=== PATIENT | male | born 1955 | race Caucasian/White ===

== ENCOUNTER 2018-07-18 14:35 | Inpatient (IN) | payer OTHER ==
[~2018-07-18] VITALS: Ht 193 cm; Wt 121.6 kg
[2018-07-18 14:40] VITALS: BP 146/99
[2018-07-18] MEDS ORDERED: methylPREDNISolone SS 125 MG/2 ML VIAL IVP ONE (14:45)
[2018-07-18] MEDS ORDERED: ALBUTEROL SULFATE/IPRATROPIU 3 ML SOL IH ONE ×2 (14:45→16:10)
[2018-07-18 15:34] LABS: BASOPHILS % (AUTO) 0.4 % (0.0-2.0); EOSINOPHILS # (AUTO) 0.6 K/uL (0-0.4); EOSINOPHILS % (AUTO) 6.6 % (0.0-4.0); HEMATOCRIT 41.2 % (36-52); HEMOGLOBIN 13.4 g/dL (12.0-18.0); LYMPHOCYTES # (AUTO) 0.9 K/uL (2.0-11.5); LYMPHOCYTES % (AUTO) 9.8 % (20.5-51.1); MEAN CORPUSCULAR HEMOGLOBIN 31 pg (27-31); MEAN CORPUSCULAR HGB CONC 32 g/dL (33-37); MEAN CORPUSCULAR VOLUME 94.8 fL (80-94); MONOCYTES # (AUTO) 0.5 K/uL (0.8-1.0); MONOCYTES % (AUTO) 5.9 % (1.7-9.3); NEUTROPHILS # (AUTO) 7.2 K/uL (1.8-7.7); NEUTROPHILS % (AUTO) 77.3 % (42.2-75.2); PLATELET COUNT (AUTO) 209 K/uL (140-450); RED BLOOD CELL COUNT(AUTO) 4.35 MIL/uL (4.20-6.10); RED CELL DISTRIBUTION WIDTH 17.3 % (11.6-13.7); WHITE BLOOD COUNT (AUTO) 9.3 K/uL (4.8-10.8)
[2018-07-18] MEDS ORDERED: NACL 0.9% 1,000 ML IV ONE ×2 (16:10→17:25)
[2018-07-18] MEDS ORDERED: ACETAMINOPHEN 325 MG TAB PO ONE (16:15)
[2018-07-18 16:53] LABS: POTASSIUM 3.8 mmol/L (3.5-5.1)
[2018-07-18 16:54] LABS: ANION GAP 15.6 (8-16); CARBON DIOXIDE 24.2 mmol/L (21-32)
[2018-07-18 16:55] LABS: CREATININE 1.2 mg/dL (0.7-1.3)
[2018-07-18 16:59] LABS: ALBUMIN 4.2 g/dL (3.4-5.0); TOTAL BILIRUBIN 0.6 mg/dL (0.0-1.0)
[2018-07-18] MEDS ORDERED: DOXYCYCLINE 100 MG in DEXTROSE 5% 100 ML IV STA (17:21)
[2018-07-18] MEDS ORDERED: ONDANSETRON 4 MG/2 ML VIAL IVP PRN (17:35)
[2018-07-18] MEDS ORDERED: ZOLPIDEM 5 MG TAB PO PRN (17:35)
[2018-07-18] MEDS ORDERED: HYDROcodone/APAP 7.5/325 MG 1 TAB PO PRN (17:35)
[2018-07-18] MEDS ORDERED: ALBUTEROL SULFATE/IPRATROPIU 3 ML SOL IH PRN (17:45)
[2018-07-18 18:25] VITALS: BP 123/74
[2018-07-18 18:37] LABS: PROTHROMBIN TIME 10.5 secs (10.8-13.4)
[2018-07-18 18:44] LABS: MAGNESIUM 1.8 mg/dL (1.8-2.4); PHOSPHORUS 3.2 mg/dL (2.5-4.9)
[2018-07-18 18:45] LABS: FREE T4 (FREE THYROXINE) 0.76 ng/dL (0.76-1.46); THYROID STIMULATING HORMONE 3.01 uIU/mL (0.34-3.74)
[2018-07-18] MEDS: NACL 0.9% 1,000 ML IV SCH (18:46)
[2018-07-18] MEDS: ALBUTEROL SULFATE/IPRATROPIU 3 ML SOL IH SCH (19:42)
[2018-07-18 20:00] VITALS: BP 124/71
[2018-07-18] MEDS: DOCUSATE SODIUM 100 MG GELCAP PO SCH (21:05)
[2018-07-18] MEDS ORDERED: METOPROLOL SUCCINATE 50 MG TABER PO SCH (22:55)
[2018-07-18] MEDS ORDERED: PNEUMOCOCCAL VACCINE 23 MCG/0.5 ML VIAL IMVAC PRN (23:10)
[2018-07-18] MEDS ORDERED: INFLUENZA VIRUS VACCINE QUAD 0.5 ML SYR IMVAC PRN (23:10)
[2018-07-18 23:58] LABS: BARBITURATE, URINE NEGATIVE ng/ml (NEG <=200); BENZODIAZEPINE, URINE NEGATIVE ng/mL (NEG <=200); CANNABINOID, URINE NEGATIVE ng/mL (NEG <=50); COCAINE, URINE NEGATIVE ng/mL (NEG <=300); OPIATE, URINE NEGATIVE ng/mL (NEG <=2000); PHENCYCLIDINE SCREEN,URINE NEGATIVE ng/mL (NEG <=25)
[2018-07-19] VITALS: BP 115/86
[2018-07-19 01:03] LABS: APPEARANCE,URINE CLEAR (CLEAR); BILIRUBIN,URINE NEGATIVE (NEGATIVE); BLOOD, URINE NEGATIVE (NEGATIVE); COLOR,URINE YELLOW (YELLOW); LEUKOCYTE ESTERASE ,URINE NEGATIVE (NEGATIVE); NITRITE, URINE NEGATIVE (NEGATIVE); UGLUCOSE NEGATIVE (NEGATIVE)
[2018-07-19 04:00] VITALS: BP 119/61
[2018-07-19] MEDS ORDERED: DOXYCYCLINE 100 MG in DEXTROSE 5% 100 ML IV ONE (05:00)
[2018-07-19] MEDS: methylPREDNISolone SS 125 MG/2 ML VIAL IVP SCH ×3 (05:20→21:16)
[2018-07-19] MEDS: DOXYCYCLINE 100 MG VIAL IV ONE ×2 (05:21→05:22)
[2018-07-19 07:09] LABS: BASOPHILS % (AUTO) 0.1 % (0.0-2.0); EOSINOPHILS % (AUTO) 0.1 % (0.0-4.0); HEMOGLOBIN 13.5 g/dL (12.0-18.0); LYMPHOCYTES # (AUTO) 0.5 K/uL (2.0-11.5); LYMPHOCYTES % (AUTO) 6.2 % (20.5-51.1); MEAN CORPUSCULAR HEMOGLOBIN 31 pg (27-31); MEAN CORPUSCULAR HGB CONC 33 g/dL (33-37); MEAN CORPUSCULAR VOLUME 95.3 fL (80-94); MONOCYTES # (AUTO) 0.3 K/uL (0.8-1.0); MONOCYTES % (AUTO) 3.4 % (1.7-9.3); NEUTROPHILS # (AUTO) 7.7 K/uL (1.8-7.7); NEUTROPHILS % (AUTO) 90.2 % (42.2-75.2); PLATELET COUNT (AUTO) 214 K/uL (140-450); RED BLOOD CELL COUNT(AUTO) 4.31 MIL/uL (4.20-6.10); RED CELL DISTRIBUTION WIDTH 17.9 % (11.6-13.7); WHITE BLOOD COUNT (AUTO) 8.5 K/uL (4.8-10.8)
[2018-07-19] MEDS: ALBUTEROL SULFATE/IPRATROPIU 3 ML SOL IH SCH ×4 (07:37→23:27)
[2018-07-19 07:53] LABS: PHOSPHORUS 3.7 mg/dL (2.5-4.9)
[2018-07-19 08:00] VITALS: BP 138/76
[2018-07-19] MEDS: DOCUSATE SODIUM 100 MG GELCAP PO SCH ×2 (09:00→21:15)
[2018-07-19 10:42] LABS: POTASSIUM 4.3 mmol/L (3.5-5.1)
[2018-07-19 10:43] LABS: CARBON DIOXIDE 24.3 mmol/L (21-32); CREATININE 1.2 mg/dL (0.7-1.3)
[2018-07-19 12:00] VITALS: BP 124/78
[2018-07-19] MEDS: AZITHROMYCIN 250 MG in DEXTROSE 5% 250 ML IV SCH (14:15)
[2018-07-19 16:00] VITALS: BP 119/75
[2018-07-19] MEDS: NACL 0.9% 1,000 ML IV SCH (17:02)
[2018-07-19] MEDS: BUDESONIDE 0.5 MG/2 ML NEBU INH SCH (19:44)
[2018-07-19 20:00] VITALS: BP 134/64
[2018-07-19] MEDS ORDERED: DILTIAZEM 25 MG/5 ML VIAL IVP SCH (20:30)
[2018-07-19] MEDS: ACETAMINOPHEN 325 MG TAB PO PRN (21:26)
[2018-07-20] VITALS (20 sets, daily range): BP systolic 101–137; BP diastolic 44–109
[2018-07-20] MEDS: ALBUTEROL SULFATE/IPRATROPIU 3 ML SOL IH SCH ×6 (03:39→23:24)
[2018-07-20] MEDS ORDERED: DILTIAZEM 25 MG/5 ML VIAL IVP SCH ×2 (04:00→15:45)
[2018-07-20] MEDS: methylPREDNISolone SS 40 MG/ML VIAL IVP SCH ×2 (05:35→14:20)
[2018-07-20] MEDS: ACETAMINOPHEN 325 MG TAB PO PRN ×2 (05:42→12:17)
[2018-07-20] MEDS: BUDESONIDE 0.5 MG/2 ML NEBU INH SCH ×2 (07:27→19:02)
[2018-07-20 07:41] LABS: HEMATOCRIT 39.6 % (36-52); HEMOGLOBIN 12.7 g/dL (12.0-18.0); LYMPHOCYTES # (AUTO) 0.4 K/uL (2.0-11.5); LYMPHOCYTES % (AUTO) 2.7 % (20.5-51.1); MEAN CORPUSCULAR HEMOGLOBIN 31 pg (27-31); MEAN CORPUSCULAR HGB CONC 32 g/dL (33-37); MEAN CORPUSCULAR VOLUME 95.8 fL (80-94); MONOCYTES # (AUTO) 0.8 K/uL (0.8-1.0); NEUTROPHILS # (AUTO) 14.4 K/uL (1.8-7.7); NEUTROPHILS % (AUTO) 92.3 % (42.2-75.2); PLATELET COUNT (AUTO) 218 K/uL (140-450); RED BLOOD CELL COUNT(AUTO) 4.13 MIL/uL (4.20-6.10); RED CELL DISTRIBUTION WIDTH 18.3 % (11.6-13.7); WHITE BLOOD COUNT (AUTO) 15.6 K/uL (4.8-10.8)
[2018-07-20 08:25] LABS: ANION GAP 12.2 (8-16); CARBON DIOXIDE 28.8 mmol/L (21-32); CREATININE 1.2 mg/dL (0.7-1.3)
[2018-07-20 08:35] LABS: MAGNESIUM 2.1 mg/dL (1.8-2.4); PHOSPHORUS 3.1 mg/dL (2.5-4.9)
[2018-07-20] MEDS: DOCUSATE SODIUM 100 MG GELCAP PO SCH ×2 (09:00→20:26)
[2018-07-20] MEDS: ECOTRIN 81 MG TABEC PO SCH (10:09)
[2018-07-20] MEDS: PANTOPRAZOLE 40 MG TABEC PO SCH (10:09)
[2018-07-20] MEDS: ATORVASTATIN 20 MG TAB PO SCH (10:09)
[2018-07-20] MEDS: MONTELUKAST SODIUM 10 MG TAB PO SCH (10:09)
[2018-07-20] MEDS: amLODIPine 5 MG TAB PO SCH (10:10)
[2018-07-20] MEDS: AZITHROMYCIN 250 MG in DEXTROSE 5% 250 ML IV SCH ×2 (13:57→15:35)
[2018-07-20] MEDS ORDERED: NACL 0.9% 500 ML IV SCH (15:40)
[2018-07-20] MEDS: NACL 0.9% 1,000 ML IV SCH ×2 (17:33→20:40)
[2018-07-20] MEDS ORDERED: DIGOXIN 0.25 MG/ML AMP IV ONE (18:05)
[2018-07-20] MEDS ORDERED: AMIODARONE 450 MG/9 ML VIAL IV ONE (20:11)
[2018-07-20] MEDS ORDERED: AMIODARONE 150 MG/3 ML VIAL IV ONE (20:22)
[2018-07-20] MEDS: AMIODARONE 450 MG in DEXTROSE 5% 250 ML IV SCH (20:41)
[2018-07-21] VITALS (54 sets, daily range): BP systolic 99–160; BP diastolic 49–116
[2018-07-21] MEDS: ALBUTEROL SULFATE/IPRATROPIU 3 ML SOL IH SCH ×6 (03:10→23:17)
[2018-07-21] MEDS: methylPREDNISolone SS 40 MG/ML VIAL IVP SCH ×2 (04:20→08:31)
[2018-07-21] MEDS ORDERED: methylPREDNISolone SS 40 MG/ML VIAL ONE (04:30)
[2018-07-21] MEDS: ACETAMINOPHEN 325 MG TAB PO PRN ×4 (05:37→21:18)
[2018-07-21] MEDS: AMIODARONE 450 MG in DEXTROSE 5% 250 ML IV SCH ×2 (05:43→23:36)
[2018-07-21] MEDS ORDERED: AMIODARONE 150 MG/3 ML VIAL IV ONE (05:46)
[2018-07-21] MEDS: BUDESONIDE 0.5 MG/2 ML NEBU INH SCH ×2 (06:39→18:32)
[2018-07-21 06:41] LABS: HEMATOCRIT 38.1 % (36-52); HEMOGLOBIN 12.3 g/dL (12.0-18.0); LYMPHOCYTES # (AUTO) 0.7 K/uL (2.0-11.5); LYMPHOCYTES % (AUTO) 4.8 % (20.5-51.1); MEAN CORPUSCULAR HEMOGLOBIN 31 pg (27-31); MEAN CORPUSCULAR HGB CONC 32 g/dL (33-37); MEAN CORPUSCULAR VOLUME 96.1 fL (80-94); MONOCYTES # (AUTO) 0.8 K/uL (0.8-1.0); MONOCYTES % (AUTO) 5.7 % (1.7-9.3); NEUTROPHILS # (AUTO) 12.3 K/uL (1.8-7.7); NEUTROPHILS % (AUTO) 89.5 % (42.2-75.2); PLATELET COUNT (AUTO) 222 K/uL (140-450); RED BLOOD CELL COUNT(AUTO) 3.97 MIL/uL (4.20-6.10); RED CELL DISTRIBUTION WIDTH 18.4 % (11.6-13.7); WHITE BLOOD COUNT (AUTO) 13.8 K/uL (4.8-10.8)
[2018-07-21 07:17] LABS: ANION GAP 10.3 (8-16); CARBON DIOXIDE 29.3 mmol/L (21-32); CREATININE 1.1 mg/dL (0.7-1.3); POTASSIUM 3.6 mmol/L (3.5-5.1)
[2018-07-21 07:29] LABS: MAGNESIUM 2.1 mg/dL (1.8-2.4); PHOSPHORUS 4.1 mg/dL (2.5-4.9)
[2018-07-21] MEDS: PANTOPRAZOLE 40 MG TABEC PO SCH (08:30)
[2018-07-21] MEDS: ATORVASTATIN 20 MG TAB PO SCH (08:30)
[2018-07-21] MEDS: ECOTRIN 81 MG TABEC PO SCH (08:31)
[2018-07-21] MEDS: amLODIPine 5 MG TAB PO SCH (08:32)
[2018-07-21] MEDS: MONTELUKAST SODIUM 10 MG TAB PO SCH (08:32)
[2018-07-21] MEDS: DOCUSATE SODIUM 100 MG GELCAP PO SCH ×2 (08:33→20:07)
[2018-07-21] MEDS ORDERED: methylPREDNISolone SS 40 MG/ML VIAL IVP SCH (09:00)
[2018-07-21] MEDS: AZITHROMYCIN 250 MG in DEXTROSE 5% 250 ML IV SCH (13:25)
[2018-07-21] MEDS ORDERED: BENZONATATE 100 MG CAPLF PO PRN (15:20)
[2018-07-21] MEDS ORDERED: DIGOXIN 0.25 MG/ML AMP IV SCH (19:00)
[2018-07-21] MEDS: ASPIRIN 81 MG TAB.CHEW PO SCH (20:06)
[2018-07-22] VITALS (62 sets, daily range): BP systolic 97–160; BP diastolic 59–103
[2018-07-22] MEDS ORDERED: DIGOXIN 0.25 MG/ML AMP IV SCH
[2018-07-22] MEDS: ALBUTEROL SULFATE/IPRATROPIU 3 ML SOL IH SCH ×6 (03:19→23:00)
[2018-07-22 06:22] LABS: BASOPHILS % (AUTO) 0.1 % (0.0-2.0); EOSINOPHILS % (AUTO) 0.2 % (0.0-4.0); HEMATOCRIT 38.4 % (36-52); HEMOGLOBIN 12.6 g/dL (12.0-18.0); LYMPHOCYTES # (AUTO) 1.1 K/uL (2.0-11.5); LYMPHOCYTES % (AUTO) 11.3 % (20.5-51.1); MEAN CORPUSCULAR HEMOGLOBIN 31 pg (27-31); MEAN CORPUSCULAR HGB CONC 33 g/dL (33-37); MONOCYTES # (AUTO) 0.9 K/uL (0.8-1.0); MONOCYTES % (AUTO) 9.1 % (1.7-9.3); NEUTROPHILS % (AUTO) 79.3 % (42.2-75.2); PLATELET COUNT (AUTO) 215 K/uL (140-450); RED BLOOD CELL COUNT(AUTO) 3.99 MIL/uL (4.20-6.10); RED CELL DISTRIBUTION WIDTH 18.3 % (11.6-13.7); WHITE BLOOD COUNT (AUTO) 10.1 K/uL (4.8-10.8)
[2018-07-22] MEDS: BUDESONIDE 0.5 MG/2 ML NEBU INH SCH ×2 (07:02→18:51)
[2018-07-22 07:31] LABS: ANION GAP 11.1 (8-16); CREATININE 1.2 mg/dL (0.7-1.3); POTASSIUM 4.1 mmol/L (3.5-5.1)
[2018-07-22 07:46] LABS: PHOSPHORUS 3.3 mg/dL (2.5-4.9)
[2018-07-22] MEDS: ACETAMINOPHEN 325 MG TAB PO PRN ×2 (08:43→22:07)
[2018-07-22] MEDS: ECOTRIN 81 MG TABEC PO SCH (08:43)
[2018-07-22] MEDS: methylPREDNISolone SS 40 MG/ML VIAL IVP SCH (08:43)
[2018-07-22] MEDS: amLODIPine 5 MG TAB PO SCH (08:43)
[2018-07-22] MEDS: PANTOPRAZOLE 40 MG TABEC PO SCH (08:43)
[2018-07-22] MEDS: ATORVASTATIN 20 MG TAB PO SCH (08:44)
[2018-07-22] MEDS: MONTELUKAST SODIUM 10 MG TAB PO SCH (08:49)
[2018-07-22] MEDS: DOCUSATE SODIUM 100 MG GELCAP PO SCH ×2 (08:59→21:00)
[2018-07-22] MEDS ORDERED: guaiFENesin 600 MG TABER PO SCH (09:09)
[2018-07-22] MEDS: FLUTICASONE NASAL 50 MCG/ACTUATION 16 GM BTL NS SCH (09:52)
[2018-07-22] MEDS: AZITHROMYCIN 250 MG in DEXTROSE 5% 250 ML IV SCH (12:01)
[2018-07-22] MEDS: NACL 0.9% 1,000 ML IV SCH (12:01)
[2018-07-22] MEDS: AMIODARONE 450 MG in DEXTROSE 5% 250 ML IV SCH (13:39)
[2018-07-22] MEDS ORDERED: DIGOXIN 0.25 MG TAB PO SCH (16:30)
[2018-07-22] MEDS: ACETYLCYSTEINE 10% (100 MG/ML) 100 MG/ML VIAL INH SCH ×2 (19:00→23:00)
[2018-07-22] MEDS: guaiFENesin 600 MG TABER PO SCH (21:00)
[2018-07-22] MEDS: ASPIRIN 81 MG TAB.CHEW PO SCH (21:00)
[2018-07-23] VITALS (17 sets, daily range): BP systolic 107–157; BP diastolic 60–109
[2018-07-23] MEDS: ACETYLCYSTEINE 10% (100 MG/ML) 100 MG/ML VIAL INH SCH ×6 (03:00→23:45)
[2018-07-23] MEDS: ALBUTEROL SULFATE/IPRATROPIU 3 ML SOL IH SCH ×6 (03:00→23:45)
[2018-07-23 05:15] LABS: BASOPHILS % (AUTO) 0.2 % (0.0-2.0); EOSINOPHILS # (AUTO) 0.1 K/uL (0-0.4); EOSINOPHILS % (AUTO) 1.3 % (0.0-4.0); HEMATOCRIT 39.5 % (36-52); LYMPHOCYTES # (AUTO) 1.3 K/uL (2.0-11.5); LYMPHOCYTES % (AUTO) 15.5 % (20.5-51.1); MEAN CORPUSCULAR HEMOGLOBIN 31 pg (27-31); MEAN CORPUSCULAR HGB CONC 33 g/dL (33-37); MEAN CORPUSCULAR VOLUME 94.9 fL (80-94); MONOCYTES # (AUTO) 0.7 K/uL (0.8-1.0); MONOCYTES % (AUTO) 8.6 % (1.7-9.3); NEUTROPHILS # (AUTO) 6.2 K/uL (1.8-7.7); NEUTROPHILS % (AUTO) 74.4 % (42.2-75.2); PLATELET COUNT (AUTO) 211 K/uL (140-450); RED BLOOD CELL COUNT(AUTO) 4.16 MIL/uL (4.20-6.10); RED CELL DISTRIBUTION WIDTH 17.8 % (11.6-13.7); WHITE BLOOD COUNT (AUTO) 8.4 K/uL (4.8-10.8)
[2018-07-23] MEDS: AMIODARONE 200 MG TAB PO SCH ×3 (06:00→20:43)
[2018-07-23 06:20] LABS: ANION GAP 11.9 (8-16); CREATININE 1.1 mg/dL (0.7-1.3); POTASSIUM 3.9 mmol/L (3.5-5.1)
[2018-07-23 06:24] LABS: PHOSPHORUS 4.1 mg/dL (2.5-4.9)
[2018-07-23] MEDS: BUDESONIDE 0.5 MG/2 ML NEBU INH SCH ×2 (06:50→19:26)
[2018-07-23] MEDS: guaiFENesin 600 MG TABER PO SCH ×2 (08:14→20:44)
[2018-07-23] MEDS: DOCUSATE SODIUM 100 MG GELCAP PO SCH ×2 (08:14→20:43)
[2018-07-23] MEDS: ATORVASTATIN 20 MG TAB PO SCH (08:14)
[2018-07-23] MEDS: DIGOXIN 0.25 MG TAB PO SCH (08:14)
[2018-07-23] MEDS: ECOTRIN 81 MG TABEC PO SCH (08:14)
[2018-07-23] MEDS: PANTOPRAZOLE 40 MG TABEC PO SCH (08:15)
[2018-07-23] MEDS: MONTELUKAST SODIUM 10 MG TAB PO SCH (08:15)
[2018-07-23] MEDS: amLODIPine 5 MG TAB PO SCH (08:15)
[2018-07-23] MEDS: FLUTICASONE NASAL 50 MCG/ACTUATION 16 GM BTL NS SCH (08:23)
[2018-07-23] MEDS: methylPREDNISolone SS 40 MG/ML VIAL IVP SCH (08:23)
[2018-07-23] MEDS: AZITHROMYCIN 250 MG in DEXTROSE 5% 250 ML IV SCH (12:52)
[2018-07-23] MEDS ORDERED: AZITHROMYCIN 250 MG in DEXTROSE 5% 250 ML IV SCH (13:00)
[2018-07-23] MEDS: AMIODARONE 450 MG in DEXTROSE 5% 250 ML IV SCH (14:35)
[2018-07-23] MEDS: NACL 0.9% 1,000 ML IV SCH (16:40)
[2018-07-23] MEDS: ASPIRIN 81 MG TAB.CHEW PO SCH (20:43)
[2018-07-24] VITALS (8 sets, daily range): BP systolic 94–147; BP diastolic 58–93
[2018-07-24] MEDS: ACETYLCYSTEINE 10% (100 MG/ML) 100 MG/ML VIAL INH SCH ×6 (03:00→23:00)
[2018-07-24] MEDS: ALBUTEROL SULFATE/IPRATROPIU 3 ML SOL IH SCH ×6 (03:00→23:22)
[2018-07-24 05:45] LABS: HEMATOCRIT 41.8 % (36-52); HEMOGLOBIN 13.8 g/dL (12.0-18.0); MEAN CORPUSCULAR HEMOGLOBIN 32 pg (27-31); MEAN CORPUSCULAR HGB CONC 33 g/dL (33-37); MEAN CORPUSCULAR VOLUME 95.4 fL (80-94); PLATELET COUNT (AUTO) 206 K/uL (140-450); RED BLOOD CELL COUNT(AUTO) 4.38 MIL/uL (4.20-6.10); RED CELL DISTRIBUTION WIDTH 17.9 % (11.6-13.7); WHITE BLOOD COUNT (AUTO) 7.5 K/uL (4.8-10.8)
[2018-07-24 06:28] LABS: ANION GAP 12.3 (8-16); CARBON DIOXIDE 29.6 mmol/L (21-32); CREATININE 1.1 mg/dL (0.7-1.3); POTASSIUM 3.9 mmol/L (3.5-5.1)
[2018-07-24 06:37] LABS: MAGNESIUM 2.1 mg/dL (1.8-2.4); PHOSPHORUS 4.5 mg/dL (2.5-4.9)
[2018-07-24] MEDS: BUDESONIDE 0.5 MG/2 ML NEBU INH SCH ×2 (06:59→19:59)
[2018-07-24 07:56] LABS: EOSINOPHILS % (MANUAL) 8 % (0-4); LYMPHOCYTES % (MANUAL) 22 % (20-46); MONOCYTES % (MANUAL) 10 % (5-12)
[2018-07-24] MEDS: amLODIPine 5 MG TAB PO SCH (09:00)
[2018-07-24] MEDS: DOCUSATE SODIUM 100 MG GELCAP PO SCH ×2 (09:45→21:00)
[2018-07-24] MEDS: MONTELUKAST SODIUM 10 MG TAB PO SCH (09:47)
[2018-07-24] MEDS: ATORVASTATIN 20 MG TAB PO SCH (09:48)
[2018-07-24] MEDS: AMIODARONE 200 MG TAB PO SCH ×2 (09:48→20:48)
[2018-07-24] MEDS: ECOTRIN 81 MG TABEC PO SCH (09:48)
[2018-07-24] MEDS: guaiFENesin 600 MG TABER PO SCH ×2 (09:49→20:48)
[2018-07-24] MEDS: PANTOPRAZOLE 40 MG TABEC PO SCH (09:49)
[2018-07-24] MEDS: DIGOXIN 0.25 MG TAB PO SCH (09:49)
[2018-07-24] MEDS: methylPREDNISolone SS 40 MG/ML VIAL IVP SCH (09:50)
[2018-07-24] MEDS: FLUTICASONE NASAL 50 MCG/ACTUATION 16 GM BTL NS SCH (09:51)
[2018-07-24] MEDS: AZITHROMYCIN 250 MG in DEXTROSE 5% 250 ML IV SCH (13:21)
[2018-07-24] MEDS ORDERED: ALBU0.0912 IH (15:50)
[2018-07-24] MEDS ORDERED: [UNRECOGNIZED DRUG - CODE] PO (15:50)
[2018-07-24] MEDS ORDERED: MONT10TA35 PO (15:50)
[2018-07-24] MEDS ORDERED: AMLO5TAB4 PO (15:50)
[2018-07-24] MEDS ORDERED: ASPI-1173 PO (15:50)
[2018-07-24] MEDS ORDERED: PUL.5N INH (15:50)
[2018-07-24] MEDS ORDERED: ATOR20TA40 PO (15:50)
[2018-07-24] MEDS ORDERED: AMIO200T5 PO (15:50)
[2018-07-24] MEDS ORDERED: AMIO200T10 PO (15:50)
[2018-07-24] MEDS: NACL 0.9% 1,000 ML IV SCH (17:33)
[2018-07-24] MEDS ORDERED: DILTIAZEM 25 MG/5 ML VIAL IVP SCH (18:35)
[2018-07-24] MEDS: ASPIRIN 81 MG TAB.CHEW PO SCH (20:47)
[2018-07-24] MEDS: DILTIAZEM 30 MG TAB PO SCH (20:48)
[2018-07-25] VITALS: BP 121/71
[2018-07-25] MEDS: ACETYLCYSTEINE 10% (100 MG/ML) 100 MG/ML VIAL INH SCH ×3 (03:00→11:11)
[2018-07-25] MEDS: ALBUTEROL SULFATE/IPRATROPIU 3 ML SOL IH SCH ×3 (03:22→11:11)
[2018-07-25 04:00] VITALS: BP 106/73
[2018-07-25] MEDS: DILTIAZEM 30 MG TAB PO SCH (05:36)
[2018-07-25 06:12] LABS: BASOPHILS % (AUTO) 0.1 % (0.0-2.0); EOSINOPHILS # (AUTO) 0.3 K/uL (0-0.4); EOSINOPHILS % (AUTO) 2.8 % (0.0-4.0); HEMATOCRIT 42.6 % (36-52); LYMPHOCYTES # (AUTO) 1.5 K/uL (2.0-11.5); LYMPHOCYTES % (AUTO) 16.5 % (20.5-51.1); MEAN CORPUSCULAR HEMOGLOBIN 31 pg (27-31); MEAN CORPUSCULAR HGB CONC 33 g/dL (33-37); MEAN CORPUSCULAR VOLUME 95.4 fL (80-94); MONOCYTES # (AUTO) 0.9 K/uL (0.8-1.0); MONOCYTES % (AUTO) 9.5 % (1.7-9.3); NEUTROPHILS # (AUTO) 6.5 K/uL (1.8-7.7); NEUTROPHILS % (AUTO) 71.1 % (42.2-75.2); PLATELET COUNT (AUTO) 208 K/uL (140-450); RED BLOOD CELL COUNT(AUTO) 4.47 MIL/uL (4.20-6.10); RED CELL DISTRIBUTION WIDTH 18.3 % (11.6-13.7); WHITE BLOOD COUNT (AUTO) 9.2 K/uL (4.8-10.8)
[2018-07-25 06:50] LABS: ANION GAP 11.3 (8-16); CARBON DIOXIDE 29.5 mmol/L (21-32); CREATININE 1.1 mg/dL (0.7-1.3); POTASSIUM 3.8 mmol/L (3.5-5.1)
[2018-07-25 06:53] LABS: MAGNESIUM 2.3 mg/dL (1.8-2.4); PHOSPHORUS 3.9 mg/dL (2.5-4.9)
[2018-07-25] MEDS: BUDESONIDE 0.5 MG/2 ML NEBU INH SCH (07:48)
[2018-07-25 08:00] VITALS: BP 98/56
[2018-07-25 09:00] VITALS: BP 124/56
[2018-07-25] MEDS: MONTELUKAST SODIUM 10 MG TAB PO SCH (09:13)
[2018-07-25] MEDS: methylPREDNISolone SS 40 MG/ML VIAL IVP SCH (09:13)
[2018-07-25] MEDS: guaiFENesin 600 MG TABER PO SCH (09:13)
[2018-07-25] MEDS: ATORVASTATIN 20 MG TAB PO SCH (09:14)
[2018-07-25] MEDS: DIGOXIN 0.25 MG TAB PO SCH (09:14)
[2018-07-25] MEDS: ECOTRIN 81 MG TABEC PO SCH (09:14)
[2018-07-25] MEDS: PANTOPRAZOLE 40 MG TABEC PO SCH (09:14)
[2018-07-25] MEDS: DOCUSATE SODIUM 100 MG GELCAP PO SCH (09:14)
[2018-07-25] MEDS: AMIODARONE 200 MG TAB PO SCH (09:15)
[2018-07-25] MEDS ORDERED: CAR30 PO (09:15)
[2018-07-25] MEDS: FLUTICASONE NASAL 50 MCG/ACTUATION 16 GM BTL NS SCH (09:18)
[2018-07-25] MEDS ORDERED: BUDE90PO IH (09:30)
[2018-07-25] MEDS ORDERED: LEVO750T2 PO (10:17)
== END 2018-07-25 13:10 | disposition home or self-care (01) | DRG 682 ==
LOC: MED 14:35 → MTU 17:33 → MIC 07-20 19:36 → MTU 07-24 19:06
PROVIDERS: ADMIT General Practice; ATTEND General Practice
DX: N17.0 Acute kidney failure with tubular necrosis (principal); J96.01 Acute respiratory failure with hypoxia; J18.9 Pneumonia, unspecified organism; J44.1 Chronic obstructive pulmonary disease with (acute) exacerbation; J44.0 Chronic obstructive pulmonary disease with (acute) lower respiratory infection; J45.901 Unspecified asthma with (acute) exacerbation; I48.92 Unspecified atrial flutter; E66.9 Obesity, unspecified; J20.9 Acute bronchitis, unspecified; E78.5 Hyperlipidemia, unspecified; R73.03 Prediabetes; I11.9 Hypertensive heart disease without heart failure; G47.33 Obstructive sleep apnea (adult) (pediatric); D72.829 Elevated white blood cell count, unspecified; T38.0X5A Adverse effect of glucocorticoids and synthetic analogues, initial encounter; I44.1 Atrioventricular block, second degree; J30.9 Allergic rhinitis, unspecified; Z91.041 Radiographic dye allergy status; Z91.013 Allergy to seafood; Z87.891 Personal history of nicotine dependence; Z71.3 Dietary counseling and surveillance; Y92.89 Other specified places as the place of occurrence of the external cause; Z91.14 Patient's other noncompliance with medication regimen; Z68.35 Body mass index [BMI] 35.0-35.9, adult
CPT/HCPCS: 36415; 71045; 71250; 80048; 80053; 80162; 80305; 81003; 82150; 83036; 83605; 83690; 83735; 83880; 84100; 84439; 84443; 84484; 85025; 85610; 85730; 87040; 87081; 87804; 93005; 94640; 96361; 96374; 99285; J0282; J0456; J0696; J1160; J2920; J2930; J3490; J7030; J7060; J7620; J7626